=== PATIENT | female | born 1980 | race African-American/Black ===

== ENCOUNTER 2024-01-27 13:53 | Emergency (ER) | payer BC ==
[2024-01-27] MEDS: Sodium Chloride 0.9% 1,000 ML IV ONE (14:32)
[2024-01-27] MEDS: Sodium Chloride 0.9% 2.5 ML Syringe FLUSH PRN (14:32)
[2024-01-27] MEDS: Sodium Chloride 0.9% 10 ML Syringe FLUSH PRN (14:32)
[2024-01-27 14:39] LABS: BILIRUBIN,URINE NEGATIVE (NEGATIVE); COLOR,URINE YELLOW; GLUCOSE,URINE NEGATIVE (NEGATIVE); KETONES,URINE NEGATIVE (NEGATIVE); LEUKOCYTE ESTERASE,URINE NEGATIVE (NEGATIVE); NITRITE,URINE NEGATIVE (NEGATIVE); OCCULT BLOOD,URINE MODERATE (NEGATIVE); PROTEIN,URINE NEGATIVE (NEGATIVE); UROBILINOGEN,URINE 0.2 EU/dL (<2.0)
[2024-01-27 14:49] LABS: APPEARANCE,URINE HAZY; RBC,URINE 50-60 (0-2/HPF); WBC,URINE 0-1 (0-5/HPF)
[2024-01-27 14:50] LABS: BACTERIA,URINE MODERATE (NEGATIVE); EPITHELIAL CELLS,URINE FEW (NONE-FEW)
[2024-01-27 14:59] LABS: BASOPHILS ABSOLUTE AUTO 0.12 K/uL (0.00-0.20); BASOPHILS PERCENT AUTO 1.6 % (0.0-1.0); EOSINOPHILS ABSOLUTE AUTO 0.16 K/uL (0.00-0.45); EOSINOPHILS PERCENT AUTO 2.2 % (0.0-6.0); HEMATOCRIT 24.2 % (37.0-47.0); IMMATURE GRAN ABSOLUTE AUTO 0.02 K/uL (0.00-0.05); IMMATURE GRAN PERCENT AUTO 0.3 % (0.0-0.4); LYMPHOCYTES ABSOLUTE AUTO 2.33 K/uL (1.00-4.80); LYMPHOCYTES PERCENT AUTO 31.5 % (24.0-44.0); MEAN CORPUSCULAR HEMOGLOBIN 15.2 pg (28.0-32.0); MONOCYTES ABSOLUTE AUTO 0.61 K/uL (0.00-0.80); MONOCYTES PERCENT AUTO 8.3 % (0.0-8.0); NEUTROPHILS ABSOLUTE AUTO 4.15 K/uL (1.80-7.70); NEUTROPHILS PERCENT AUTO 56.1 % (41.0-71.0); NRBC ABSOLUTE 0.03 K/uL (0.00-0.02); NRBC PERCENT 0.4 /100WBC (0.0-0.2); RED BLOOD CELL COUNT 3.94 M/uL (4.10-5.30); WHITE BLOOD CELL COUNT,WBC 7.39 K/uL (3.9-11.3)
[2024-01-27 15:07] LABS: A/G RATIO 0.8 (0.9-1.6); ALBUMIN 3.6 g/dL (3.4-5.0); BILIRUBIN TOTAL 0.4 mg/dL (0.2-1.0); CALCIUM 8.8 mg/dL (8.5-10.1); CARBON DIOXIDE,CO2 24.7 mmol/L (21.0-32.0); CREATININE 0.7 mg/dL (0.6-1.0); EST CRCL DRUG DOSING (CG) 83.95 mL/min; POTASSIUM,K 3.9 mmol/L (3.5-5.1); PROTEIN TOTAL,TP 8.2 g/dL (6.4-8.2)
[2024-01-27 15:23] LABS: PLATELET COUNT,PLT 83 K/uL (150-400)
[2024-01-27 15:24] LABS: MEAN CORPUSCULAR VOLUME 61.4 fL (83.0-99.0)
[2024-01-27 15:25] LABS: MEAN CORPUSCULAR HGB CONC 24.8 g/dL (32.0-36.0)
[2024-01-27] MEDS: Iopamidol 755 MG/ML 500 ML Multipack Bottle IVPUSH STA (15:44)
== END 2024-01-27 17:37 | disposition home or self-care (01) ==
LOC: MW.ED 13:53
DX: N94.89 Other specified conditions associated with female genital organs and menstrual cycle (principal); R19.00 Intra-abdominal and pelvic swelling, mass and lump, unspecified site; D50.9 Iron deficiency anemia, unspecified; D69.6 Thrombocytopenia, unspecified; I10 Essential (primary) hypertension; Z86.19 Personal history of other infectious and parasitic diseases; Z75.8 Other problems related to medical facilities and other health care
CPT/HCPCS: 36415; 74177; 80053; 81001; 83690; 84703; 85025; 96360; 99284; J3490; J7030; Q9967